=== PATIENT | female | born 1945 | race African-American/Black ===

== ENCOUNTER → 2017-10-26 | Outpatient (CLI) | payer MEDICARE ==
[~2017-10-26] MED LIST: ALLO100T PO; DICL100G18 TP; IBUP-1060 PO; LOSA1TAB25 PO; METF500T16 PO; SIMV20TA3 PO
--- NOTE | 2017-10-27 08:26 | KCIC ---
Bilateral digital screening mammograms with 3-D tomosynthesis: Reason for examination: Routine screening. Comparison is made to previous studies dated 05/16/2015 and 04/25/2014. Bilateral mammograms in CC and oblique projections were obtained with 2-D imaging and 3-D tomosynthesis imaging on a Siemens Inspiration unit and reviewed on the workstation. Interpretation was made with the benefit of CAD. The skin and nipples show no abnormalities. No abnormal axillary lymph nodes are seen. The breast parenchyma shows scattered fatty and fibroglandular density. (Breast density: Category B.) There continues to be a bilobed nodule at the 2:00 B position of the right breast which is unchanged. There are no new dominant masses, suspicious calcifications or architectural distortion. Benign calcifications are present. Impression: No evidence of malignancy. Recommend routine screening. BI-RAD Category 2: Benign. "Our facility is accredited by the [employer] Mammography [employer]." This patient's information has been entered into a reminder system for the patient to be notified with the results of her examination and a target date for the next mammogram. Electronically signed by: Bibi Herrmann MD (10/27/2017 8:23 AM) [id number]
== END | disposition home or self-care (01) ==
LOC: KCIC MAMMO 16:38
PROVIDERS: ATTEND Internal Medicine
DX: Z12.31 Encounter for screening mammogram for malignant neoplasm of breast (principal); N63.12 Unspecified lump in the right breast, upper inner quadrant; Z80.3 Family history of malignant neoplasm of breast
CPT/HCPCS: 77063; 77067

== ENCOUNTER → 2019-08-01 | Outpatient (CLI) | payer BC, MEDICARE ==
[~2019-08-01] MED LIST changes: -DICL100G18 TP; +DICL100G54 TP; +SIMV20TA18 PO; -SIMV20TA3 PO
--- NOTE | 2019-08-01 14:14 | KCIC ---
Bilateral digital screening mammograms: Reason for examination: Routine screening. Comparison is made to previous studies dated 10/26/2017 and 05/16/2015. Interpretation was made with the benefit of CAD. The skin and nipples show no abnormalities. No abnormal lymph nodes are seen. The breast parenchyma is predominantly fatty. (Breast density: Category A.) There continues to be a small nodular asymmetry medially in the 3:00 position of the right breast which is stable. There is however a new nodule present posterior medially in the left breast at approximately the 8:30 position measuring 1.5 x 1.2 cm in size. Further evaluation with ultrasound is recommended. There are no other dominant masses, suspicious calcifications or architectural distortions. A few benign calcifications are again seen. Impression: New 1.5 x 1.2 cm nodule posterior medially in the left breast at the 8:30 C position. Recommend further evaluation with ultrasound. BI-RADS Category 0: Incomplete. Needs additional imaging evaluation. "Our facility is accredited by the [employer] Mammography [employer]." This patient's information has been entered into a reminder system for the patient to be notified with the results of her examination and a target date for the next mammogram. Electronically signed by: Bibi Herrmann MD (08/01/2019 2:11 PM) [email or web address]
== END | disposition home or self-care (01) ==
LOC: KCIC MAMMO 13:05
PROVIDERS: ATTEND Internal Medicine
DX: Z12.31 Encounter for screening mammogram for malignant neoplasm of breast (principal); N63.24 Unspecified lump in the left breast, lower inner quadrant
CPT/HCPCS: 77067

== ENCOUNTER → 2019-09-21 | Outpatient (CLI) | payer BC, MEDICARE ==
--- NOTE | 2019-09-21 13:24 | KCIC ---
Left breast ultrasound: Reason for examination: Nodule on screening mammogram. Comparison is made to mammographic exam dated 08/01/2019. Ultrasound examination of the left breast and axilla was performed with attention to the area of mammographic concern. In the 8:30 position 9 cm from the nipple, there is a 1 cm hypoechoic nodule with some mild posterior acoustic shadowing. Malignancy cannot be excluded. No other cystic or solid nodules are seen. No abnormal appearing lymph nodes are seen in the axilla. IMPRESSION: 1.1 cm nodule at the 8:30 position 9 cm from the nipple corresponds to the area of mammographic concern and is suspicious of malignancy. Further evaluation with ultrasound-guided biopsy is recommended. BI-RADS Category 4: Suspicious. These findings have been discussed with the patient and the patient's physician, Dr. Bay will be notified about these findings when the office reopens on . "Our facility is accredited by the [employer] Mammography [employer]." This patient's information has been entered into a reminder system for the patient to be notified with the results of her examination and a target date for the next mammogram. Electronically signed by: Bibi Herrmann MD (09/21/2019 1:21 PM) [email or web address]
== END | disposition home or self-care (01) ==
LOC: KCIC US 12:47
PROVIDERS: ATTEND Internal Medicine
DX: R92.8 Other abnormal and inconclusive findings on diagnostic imaging of breast (principal); N63.24 Unspecified lump in the left breast, lower inner quadrant
CPT/HCPCS: 76641